=== PATIENT | female | born 1960 | race Caucasian/White ===

== ENCOUNTER 2022-05-05 21:01 | Emergency (ER) | payer BC ==
[2022-05-06] MEDS ORDERED: LIDOCAINE 1% MPF 5 ML VIAL ONE (00:30)
--- NOTE | 2022-05-06 00:56 | ER ---
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 Bleeding controlled. Coronavirus screen: At this time, the client does not indicate any symptoms associated with coronavirus-19. Ebola Screen: No symptoms or risks identified at this time. Initial Sepsis Screen: Does the patient meet any 2 criteria? No. Patient's initial sepsis screen is negative. Does the patient have a suspected source of infection? No. Patient's initial sepsis screen is negative. Risk Assessment: Do you want to hurt yourself or someone else? Patient reports no desire to harm self or others. Onset of symptoms was May 05, 2022. 21:37 Method Of Arrival: Ambulatory hb 21:37 Acuity: TAMI 4 hb Triage Assessment: 05/06 01:05 General: Appears in no apparent distress. Behavior is calm, cooperative, appropriate bh1 for age. Injury Description: Laceration sustained to right hand. Historical: - Allergies: 05/05 21:39 No Known Allergies; hb - Home Meds: 21:39 None [Active]; hb - PMHx: 21:39 None; hb - PSHx: 21:39 Knee - Left; hb - Immunization history:: Last tetanus immunization: unknown. - Social history:: Smoking status: Patient reports the use of cigarette tobacco products, smokes one-half pack cigarettes per day. Screenin:33 Abuse screen: Denies threats or abuse. Nutritional screening: No deficits noted. bh1 Tuberculosis screening: No symptoms or risk factors identified. Fall Risk None identified. Assessment: 23:33 Pain: Complains of pain in dorsal aspect of distal phalanx of right little finger, bh1 dorsal aspect of middle phalanx of right little finger and dorsal aspect of proximal phalanx of right little finger. Musculoskeletal: No deficits noted. Vital Signs: 21:37 BP 133 / 77; Pulse 78; Resp 16; Temp 97(TE); Pulse Ox 100% ; Weight 83.91 kg; Height 5 hb ft. 10 in. (177.80 cm); Pain 2/10; 23:33 BP 129 / 68; Pulse 20; Resp 20; Pulse Ox 100% on R/A; bh1 21:37 Body Mass Index 26.54 (83.91 kg, 177.80 cm) ED Course: 21:06 Patient arrived in ED. 2 21:39 Triage completed. hb 21:39 Arm band placed on. hb 23:33 Areli Brown, RN is Primary Nurse. 1 23:33 No apparent distress. Awaiting ED provider evaluation. 1 23:33 Patient has correct armband on for positive identification. 1 23:33 No provider procedures requiring assistance completed. Patient did not have IV access [facility] during this emergency room visit. 23:58 Binu Angulo NP is PHCP. pm1 23:58 Kalyan Medina MD is Attending Physician. pm1 Administered Medications: 05/06 00:23 Drug: Lidocaine (1 %) 5 ml {Note: by binu kilgore.} Volume: 5 ml; Route: Infiltration; [facility] Medication: 05/05 23:33 VIS not applicable for this client. [facility] Outcome: 05/06 00:55 Discharge ordered by . pm1 01:04 Discharged to home ambulatory. [facility] 01:04 Condition: good 01:04 Discharge instructions given to patient, Instructed on discharge instructions, follow up and referral plans. medication usage, wound care, Demonstrated understanding of instructions, follow-up care, medications, wound care, Prescriptions given X 1. 01:05 Patient left the ED. [facility] Signatures: Binu Angulo NP ORTHODONTIC LAB TECHNICIAN pm1 Tamica Alegria, RN RN Tonie Lewis [facility] Areli Brown RN RN [facility]
--- NOTE | 2022-05-06 00:56 | EDPHYS ---
Physician Documentation [facility] Name: Heather Jane Age: 61 yrs Sex: Female : 1960 Arrival Date: 05/05/2022 Time: 21:06 Bed 9 Private MD: ED Physician Kalyan Medina HPI: 05/06 00:18 This 61 yrs old Female presents to ER via Ambulatory with complaints of Finger Injury. pm1 00:18 The patient or guardian reports a laceration. The complaints affect the palmar aspect pm1 of distal phalanx of right little finger. Context: The problem was sustained at home, resulted from Cut by knife that was in the sink. Onset: The symptoms/episode began/occurred just prior to arrival. Modifying factors: The symptoms are alleviated by pressure to area, the symptoms are aggravated by nothing. Associated signs and symptoms: Pertinent negatives: cyanosis distally, decreased sensation distally, numbness distally, tingling distally. Severity of symptoms: in the emergency department the symptoms have improved. The patient has not experienced similar symptoms in the past. The patient has not recently seen a physician. Historical: - Allergies: 05/05 21:39 No Known Allergies; hb - Home Meds: 21:39 None [Active]; hb - PMHx: 21:39 None; hb - PSHx: 21:39 Knee - Left; hb - Immunization history:: Last tetanus immunization: unknown. - Social history:: Smoking status: Patient reports the use of cigarette tobacco products, smokes one-half pack cigarettes per day. ROS: 05/06 00:18 Constitutional: Negative for fever, chills, and weight loss, Cardiovascular: Negative pm1 for chest pain, palpitations, and edema, Respiratory: Negative for shortness of breath, cough, wheezing, and pleuritic chest pain, MS/Extremity: Negative for injury and deformity. Skin: Positive for laceration(s), of the palmar aspect of distal phalanx of right little finger. All other systems are negative. Exam: 00:18 Constitutional: This is a well developed, well nourished patient who is awake, alert, pm1 and in no acute distress. Head/Face: Normocephalic, atraumatic. 00:18 Cardiovascular: Exam negative for acute changes, Rate: normal, Rhythm: regular, Pulses: no pulse deficits are appreciated. 00:18 Respiratory: Exam negative for acute changes, respiratory distress, shortness of breath. 00:18 Skin: Appearance: normal except for affected area, injury, laceration(s), the wound is approximately 1.5 cm(s), of the palmar aspect of distal phalanx of right little finger, that can be described as clean, no foreign body, linear, without bleeding. 00:18 Neuro: Exam negative for acute changes, Orientation: is normal, Mentation: is normal, Motor: is normal, moves all fours. Vital Signs: 05/05 21:37 BP 133 / 77; Pulse 78; Resp 16; Temp 97(TE); Pulse Ox 100% ; Weight 83.91 kg; Height 5 hb ft. 10 in. (177.80 cm); Pain 2/10; 23:33 BP 129 / 68; Pulse 20; Resp 20; Pulse Ox 100% on R/A; bh1 21:37 Body Mass Index 26.54 (83.91 kg, 177.80 cm) hb Laceration: 05/06 00:52 Wound Repair of 1.5cm ( 0.6in ) subcutaneous laceration to right little finger. Linear pm1 shaped.. Distal neuro/vascular/tendon intact. Anesthesia: Digital block administered with 1 mls of 1% lidocaine. Wound prep: Extensive cleansing with betadine with hibiclenz by me, Wound irrigation with saline by me, Wound explored extensively, Copious irrigation. Skin closed with 4 5-0 Prolene using simple sutures and sterile technique. Dressed with tube gauze, finger splint. Patient tolerated well. MDM: 00:13 Patient medically screened. pm1 00:18 Data reviewed: vital signs. Data interpreted: Pulse oximetry: on room air is 100 %. pm1 Interpretation: normal. Counseling: I had a detailed discussion with the patient and/or guardian regarding: the historical points, exam findings, and any diagnostic results supporting the discharge/admit diagnosis. 05/06 00:18 Order name: Dressing - Wound; Complete Time: 00:20 pm1 05/06 00:18 Order name: Gloves, Sterile; Complete Time: 00:20 pm1 05/06 00:18 Order name: Prolene, Sutures; Complete Time: 00:20 pm1 05/06 00:18 Order name: Setup Suture Tray; Complete Time: 00:20 pm1 05/06 00:54 Order name: Finger Splint; Complete Time: 01:05 pm1 Administered Medications: 00:23 Drug: Lidocaine (1 %) 5 ml {Note: by binu kilgore.} Volume: 5 ml; Route: Infiltration; [facility] Disposition: 02:50 Co-signature as Attending Physician, Kalyan Medina MD I agree with the assessment and kdr plan of care. Disposition Summary: 05/06/22 00:55 Discharge Ordered Location: Home pm1 Problem: new pm1 Symptoms: have improved pm1 Condition: Stable pm1 Diagnosis - Laceration without foreign body of right little finger without damage to nail, pm1 initial encounter Followup: pm1 - With: Emergency Department - When: As needed - Reason: Worsening of condition Followup: pm1 - With: Private Physician - When: 10 - 14 days - Reason: Recheck today's complaints, Continuance of care, Staple/Suture removal, Re-evaluation by your physician Discharge Instructions: - Laceration Care, Adult pm1 - Discharge Summary Sheet hb Forms: - Medication Reconciliation Form pm1 - Thank You Letter pm1 - Antibiotic Education pm1 - Prescription Opioid Use pm1 Prescriptions: - Cephalexin 500 mg Oral Capsule - take 1 capsule by ORAL route every 12 hours for 10 days; 20 capsule; Refills: pm1 0, Product Selection Permitted Signatures: Kalyan Medina MD MD [facility] Binu Angulo NP NP [facility] Tamica Alegria RN RN Areli Brown RN RN [facility]
[2022-05-06 01:27] VITALS: BP 129/68; TEMP 97; O2SAT 100
== END 2022-05-06 01:05 | disposition home or self-care (01) ==
LOC: ER 21:01
PROC: 0JQJ0ZZ Repair Right Hand Subcutaneous Tissue and Fascia, Open Approach (ICD-10-PCS; principal; 2022-05-06)
DX: S61.216A Laceration without foreign body of right little finger without damage to nail, initial encounter (principal); F17.210 Nicotine dependence, cigarettes, uncomplicated
CPT/HCPCS: 99283